=== PATIENT | female | born 1980 | race Caucasian/White ===

== ENCOUNTER → 2024-01-05 | Outpatient (CLI) | payer OTHER ==
[2024-01-17 11:01] LABS: HPV HIGH RISK BY TMA Not Detected; HPV SOURCE Cervical/Vag
== END | disposition home or self-care (01) ==
LOC: LAB SHORT 15:21 → LAB 15:21
PROVIDERS: Family Medicine
DX: Z01.419 Encounter for gynecological examination (general) (routine) without abnormal findings (principal)
CPT/HCPCS: 87624; G0123

== ENCOUNTER → 2025-03-27 | Outpatient (CLI) | payer OTHER ==
[2025-03-31 18:46] LABS: CREATININE,URINE - PER VOLUME 25 mg/dL; DOPAMINE,URINE - PER VOLUME 24 ug/L; DOPAMINE,URINE - RATIO TO CRT 96 ug/g CRT (0-250); EPINEPHRINE,URINE - PER VOLUME 2 ug/L; EPINEPHRINE,URN - RATIO TO CRT 8 ug/g CRT (0-20); HOURS COLLECTED 8 hr; NOREPINEPHRINE,UR - PER VOLUME 9 ug/L; NOREPINEPHRINE,URN/CRT RATIO 36 ug/g CRT (0-45)
[2025-04-01 09:54] LABS: CORTISOL,U FREE - RATIO TO CRT 6.68 ug/g CRT; CORTISOL,URN FREE - PER VOLUME 1.67 ug/L; CREATININE,URINE - PER VOLUME 25 mg/dL; HOURS COLLECTED 8 hr
== END ==
LOC: LAB 18:00 → LAB SHORT 18:00 → LAB FUT 10-23 07:45
PROVIDERS: Hospitalist
DX: I10 Essential (primary) hypertension (principal)
CPT/HCPCS: 81050; 82384; 82530